=== PATIENT | female | born 1955 | race Caucasian/White ===

== ENCOUNTER 2016-08-19 11:45 | Emergency (ER) | payer BC, MEDICARE ==
[~2016-08-19 11:45] MED LIST: LATA0.00 OP; LOMO PO; OMEP20TA PO; SYNT75TA PO; TRAM50 PO
[2016-08-19 11:47] VITALS: BP 151/91; PULSE 83; RESP 17; TEMP 98.4; O2SAT 98
== END 2016-08-19 12:00 | disposition left against medical advice (07) ==
LOC: NED 11:45
DX: N39.9 Disorder of urinary system, unspecified (principal)
CPT/HCPCS: 99281